=== PATIENT | female | born 1965 | race Caucasian/White ===

== ENCOUNTER 2018-11-27 20:44 | Observation (INO) | payer BC ==
[~2018-11-27] VITALS: Ht 162.6 cm; Wt 103.9 kg
[~2018-11-27 20:44] MED LIST: AMLODIPINE BESY10 MG PO; ASPIRIN81 M2 PO; BENTYL20 MG PO; CALCIUM 600 +1 EAC1 PO; CAMILA0.35 MG PO; CARVEDILOL25 MG PO; DIOVAN320 MG PO; FISH OIL 1,0001 EAC8 PO; FOLIC ACID0.4 MG PO; GLUCOPHAGE500 MG PO; HUMALOG100 UNIT/1 SQ; LANTUS SUBQ; MAGNESIUM400 MG PO; NOVAFERRUM 5050 MG PO; PROMETHAZINE12.5 M4 RE; SIMVASTATIN20 MG PO; STOOL SOFTENER50 MG PO; TRIAMTERENE/HCT1 CA1 PO; VITAMIN B-12500 MCG PO; VITAMIN D 5050000 I1
[2018-11-27 20:48] VITALS: BP 197/104
[2018-11-27] MEDS ORDERED: COZAAR100 MG PO (20:55)
[2018-11-27] MEDS ORDERED: SIMVASTATIN20 MG PO (20:55)
[2018-11-27] MEDS ORDERED: NEURONTIN 300300 M1 PO (20:57)
[2018-11-27] MEDS ORDERED: OMEPRAZOLE 20 M20 M1 PO (20:57)
[2018-11-27] MEDS ORDERED: GLYXAMBI 25 MG1 EACH PO (20:59)
[2018-11-27 21:19] LABS: URINE BILIRUBIN NEGATIVE (Negative); URINE BLOOD 1+ (Negative); URINE CLARITY CLEAR; URINE COLOR YELLOW; URINE GLUCOSE-RANDOM 3+ (Negative); URINE KETONES 1+ (Negative); URINE LEUKOCYTES-REFLEX NEGATIVE (Negative); URINE NITRITE-REFLEX NEGATIVE (Negative); URINE PROTEIN TRACE (Negative); URINE UROBILINOGEN 0.2 E.U./dl (0.2-1.0)
[2018-11-27 21:22] LABS: ABSOLUTE BASOPHILS 0.1 thou/uL (0.0-0.2); ABSOLUTE EOSINOPHILS 0.2 thou/uL (0.0-0.7); ABSOLUTE LYMPHOCYTES 2.7 thou/uL (0.8-5.3); ABSOLUTE MONOCYTES 0.6 thou/uL (0.0-1.2); ABSOLUTE NEUTROPHILS 6.7 thou/uL (1.6-8.1); BASOPHILS 0.7 %; EOSINOPHILS 2.2 %; HEMATOCRIT 45.2 % (37.0-47.0); HEMOGLOBIN 14.9 gm/dL (12.0-15.0); LYMPHOCYTES 26.2 %; MCH 29.5 pg (26.0-34.0); MCV 89.5 fL (80.0-100.0); MONOCYTES 5.9 %; MPV 6.8 fl. (7.2-11.1); NUCLEATED RBCS 0 /100WBC; PLATELET COUNT* 389 thou/uL (150-400); RBC 5.05 mil/uL (4.20-5.00); RDW-CV 14.4 % (10.5-14.5); WBC 10.3 thou/uL (4.0-11.0)
[2018-11-27 21:29] LABS: BACTERIA-REFLEX 1-9 Few /HPF (None Seen); CASTS None Seen /LPF (None Seen); CRYSTALS None Seen /LPF (None Seen); SQUAMOUS 0-3 Few /LPF (0-3); URINE RBC 0-2 Rare /HPF (0-2); URINE WBC-REFLEX 0-5 Rare /HPF (0-5)
[2018-11-27 21:31] LABS: ANION GAP 16 mmol/L (7-16); BUN 21 mg/dL (7-18); CALCIUM 9.2 mg/dL (8.5-10.1); CHLORIDE 102 mmol/L (98-107); CO2 23 mmol/L (21-32); GLUCOSE 223 mg/dL (70-99); POTASSIUM 3.6 mmol/L (3.5-5.1); SODIUM 141 mmol/L (136-145)
[2018-11-27 21:35] LABS: PROTIME 9.8 Seconds (9.20-11.50)
[2018-11-27 21:42] LABS: ALKALINE PHOSPHATASE 98 U/L (46-116); LIPASE 254 U/L (73-393); NT-PRO BRAIN NAT PEPTIDE 94 pg/mL (<300); SGOT 18 U/L (15-37); SGPT 29 U/L (30-65); TOTAL BILIRUBIN 0.3 mg/dL (<0.1-1.0); TOTAL PROTEIN 8.6 g/dL (6.4-8.2); TROPONIN-I LEVEL <0.06 ng/mL (<0.06)
[2018-11-28 01:15] VITALS: BP 155/73
[2018-11-28 08:00] VITALS: BP 153/68
[2018-11-28 09:42] LABS: CHOLESTEROL 129 mg/dL (<200); HDL CHOLESTEROL 41 mg/dL (>40); LDL CHOLESTEROL 56 mg/dL (<100); TC:HDL 3.1 Ratio (Not establshd); TRIGLYCERIDE 163 mg/dL (<150); VLDL 33 mg/dL (<40)
[2018-11-28 09:44] LABS: SERUM ASSESSMENT Clear
--- NOTE | 2018-11-28 11:49 | EKG ---
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
--- NOTE | 2018-11-28 11:49 | EKG ---
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
--- NOTE | 2018-11-28 14:34 | EXE ---
[place] [address] STRESS ECHOCARDIOGRAM Name: Beatrice ROSALES Room: [address] IN [facility]#: [id number] Admission: 11/28/18 Attend Phys: Daniel Matthew, Discharge: Date of : 61 Date of Service: 11/28/18 1433 Report #: [id number] THIS REPORT FOR: //name// APPROVED REPORT Study performed: 11/28/2018 13:14:12 Exam: Dobutamine Stress Echo Indication: Dyspnea , Chest pain Patient Location: In-Patient Stress Nurse: Stacy Kendrick RN Room #: [facility] Supervising Physician: Rah Pham MD Status: routine Ht: 5 ft 4 in HR: 93 bpm BP: 157/61 mmHg Rhythm: NSR Medical History Medications: Carvedilol, Valsartan, Amlodipine, ASA, Simvastatin, Losartan Cardiac Risk Factors: HTN, Hyperlipidemia, DM, FHX of CAD Procedure The patient underwent a Pharmacological Stress Test using Dobutamine. Blood pressure, heart rate, and EKG were monitored. An Echocardiogram was performed by pipe testing technician in four stages in quad fashion. At peak stress, four selected images were obtained and placed side by side with resting images for comparison. Stress Test Details Stress Test: Pharmacological Stress Test using Dobutamine. Reason for pharmacologic stress test: physical limitation. HR Resting HR: 93 bpm Max Heart Rate (APMHR): 165 bpm Max HR Achieved: 141 bpm Target HR (85% APMHR): 140 bpm % of APMHR: 85 Recovery HR: 99 bpm HR response to stress: Normal HR response to stress BP Resting BP: 157/61 [place] [address] STRESS ECHOCARDIOGRAM Name: Beatrice ROSALES Room: [address]#: [id number] Admission: 11/28/18 Attend Phys: Daniel Matthew, Discharge: Date of : 61 Date of Service: 11/28/18 1433 Report #: [id number] Max BP: 195/53 mmHg Recovery BP: 150/67 mmHg BP response to stress: Abnormal hypertensive response to stress. ECG Resting ECG: Sinus Rhythm, normal EKG Stress ECG: Sinus Tachycardia ST Change: none Arrhythmia: None, VPC's Recovery ECG: Sinus Rhythm Recovery ST Change: none Recovery Arrhythmia: None Clinical Reason for Termination: Completed protocol Stress Symptoms: none Stress ECG Conclusion Clinical: Non-ischemic ECG: Non-ischemic Pre-Stress Echo The resting Echocardiogram showed normal left ventricular contractility with an estimated Ejection Fraction of about 55-60%. The resting echocardiogram demonstrated normal wall motion in all wall segments. Post-Stress Echo The stress Echocardiogram showed normal left ventricular contractility with an estimated Ejection Fraction of about >70%. Compared to rest, there were no stress-induced wall motion abnormalities. Normal augmentation of wall motion in all segments on post stress images. Clinical No clinical or ECG evidence for ischemia. Conclusion Clinical Response: Non-ischemic Exercise Capacity: not assessed Stress ECG Response: Non-ischemic Stress Echo Images: Non-ischemic Normal Pharmacologic Stress Echocardiogram[place] [address] STRESS ECHOCARDIOGRAM Name: Beatrice ROSALES Room: [address]#: [id number] Admission: 11/28/18 Attend Phys: Daniel Matthew, Discharge: Date of : 61 Date of Service: 11/28/18 143 Report #: [id number] Study Quality: Good <Conclusion> Normal Pharmacologic Stress Echocardiogram. <ELECTRONICALLY SIGNED> By: Jim Pham MD, [facility]ACC 11/28/18 143 32 32 Jim Pham MD, FACC /INF
[2018-11-28] MEDS ORDERED: BENTYL 20 MG TA20 M1 PO (15:24)
[2018-11-28] MEDS ORDERED: COLACE100 MG PO (15:26)
[2018-11-28] MEDS ORDERED: ERGOCALCIF50000 UNIT PO (15:29)
[2018-11-28] MEDS ORDERED: COREG25 MG PO (15:48)
[2018-11-28] MEDS ORDERED: NORVASC2.5 MG PO (15:49)
[2018-11-28] MEDS ORDERED: COZAAR 25 MG TA25 M1 PO (15:52)
[2018-11-28 16:01] VITALS: BP 153/68
== END 2018-11-28 16:37 | disposition home or self-care (01) ==
LOC: M.ERS 20:44 → M.2W 11-28 00:46 → M.TBA-ER 11-28 00:46 → M.2W 11-28 00:46
PROVIDERS: Emergency Medicine; Registered Nurse; ADMIT Internal Medicine
DX: R07.89 Other chest pain (principal); M79.7 Fibromyalgia; E11.40 Type 2 diabetes mellitus with diabetic neuropathy, unspecified; I44.0 Atrioventricular block, first degree; I10 Essential (primary) hypertension; E78.00 Pure hypercholesterolemia, unspecified; Z79.899 Other long term (current) drug therapy; Z79.4 Long term (current) use of insulin